=== PATIENT | female | born 1980 | race Caucasian/White ===

== ENCOUNTER 2018-09-11 20:02 | Emergency (ER) | payer MEDICAID ==
[~2018-09-11] VITALS: Ht 170.2 cm; Wt 113.0 kg
[~2018-09-11 20:02] MED LIST: NO HOME MEDS
[2018-09-11 20:16] VITALS: BP 152/80
--- NOTE | 2018-09-11 20:52 | NUR ---
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 SHE IS LEFT ON TRACKER BOARD IN CASE SHE RETURNS.
--- NOTE | 2018-09-11 21:44 | NUR ---
PT BACK IN LOBBY - SHE IS ROOMED TO BED 14
[2018-09-11] MEDS ORDERED: CefTRIAXone 1000mg IM Kit (w/lidocaine diluent) IM ONE (22:15)
[2018-09-11] MEDS ORDERED: sulfamethoxazole/trimethoprim DS (800/160mg) tablet PO ONE (22:15)
[2018-09-11] MEDS ORDERED: LIDOcaine 1% w/epiNEPHrine 1:200,000 30ml vial IM ONE (22:15)
[2018-09-11] MEDS ORDERED: SULF1TAB49 PO (23:41)
== END 2018-09-12 | disposition home or self-care (01) ==
LOC: ER 20:03
DX: L02.413 Cutaneous abscess of right upper limb (principal); Z86.718 Personal history of other venous thrombosis and embolism; F15.90 Other stimulant use, unspecified, uncomplicated; Z91.040 Latex allergy status; Z88.1 Allergy status to other antibiotic agents; Z88.8 Allergy status to other drugs, medicaments and biological substances; Z79.899 Other long term (current) drug therapy
CPT/HCPCS: 10060; 96372; 99283; J0696; J3490

== ENCOUNTER 2019-12-11 01:10 | Emergency (ER) | payer MEDICAID ==
[~2019-12-11] VITALS: Ht 170.2 cm; Wt 111.0 kg
[2019-12-11 01:16] VITALS: BP 113/68
[2019-12-11] MEDS ORDERED: LIDOcaine 1% W/epiNEPHrine 1:200,000 10ml vial IJ ONE (01:40)
[2019-12-11] MEDS ORDERED: sulfamethoxazole/trimethoprim DS (800/160mg) tablet PO ONE (01:40)
[2019-12-11] MEDS ORDERED: TETanus/Pertussis (Acell)/Diphther VAC/PF (Tdap-Adult) 0.5ml syringe IMVAC ONE (01:40)
[2019-12-11] MEDS ORDERED: SULF1TAB49 PO (01:42)
[2019-12-11] MEDS ORDERED: NALO4SPR BOTHNARES (02:25)
== END 2019-12-11 02:40 | disposition home or self-care (01) ==
LOC: ER 01:11
DX: L02.413 Cutaneous abscess of right upper limb (principal); F11.10 Opioid abuse, uncomplicated; F41.9 Anxiety disorder, unspecified; Z86.718 Personal history of other venous thrombosis and embolism; Z88.2 Allergy status to sulfonamides; Z88.8 Allergy status to other drugs, medicaments and biological substances; Z91.040 Latex allergy status; Z79.2 Long term (current) use of antibiotics; Z79.899 Other long term (current) drug therapy
CPT/HCPCS: 10060; 73060; 90471; 90715; 99284

== ENCOUNTER 2019-12-17 21:33 | Emergency (ER) | payer MEDICAID ==
[~2019-12-17] VITALS: Ht 170.2 cm; Wt 110.0 kg
[~2019-12-17 21:33] MED LIST changes: +NALO4SPR BOTHNARES; +SULF1TAB49 PO
[2019-12-17] MEDS ORDERED: DOXYCYCLINE 100MG CAPSULE PO STA (22:47)
[2019-12-17] MEDS ORDERED: DOXY100C76 PO (22:47)
[2019-12-17 23:31] VITALS: BP 133/95
== END 2019-12-17 23:35 | disposition home or self-care (01) ==
LOC: ER 21:33
DX: N61.1 Abscess of the breast and nipple (principal); F41.9 Anxiety disorder, unspecified; F17.200 Nicotine dependence, unspecified, uncomplicated; F11.90 Opioid use, unspecified, uncomplicated; Z86.718 Personal history of other venous thrombosis and embolism; Z88.1 Allergy status to other antibiotic agents; Z88.8 Allergy status to other drugs, medicaments and biological substances; Z91.040 Latex allergy status; Z79.2 Long term (current) use of antibiotics; Z79.899 Other long term (current) drug therapy
CPT/HCPCS: 10060; 99283